=== PATIENT | female | born 1995 | race Caucasian/White ===

== ENCOUNTER 2016-10-08 18:10 | Emergency (ER) | payer OTHER ==
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
[2016-10-08] MEDS ORDERED: NORCO 5/325 PO ONE (23:24)
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
[2016-10-09 02:53] VITALS: BP 120/60
== END 2016-10-09 02:52 | disposition home or self-care (01) ==
LOC: ED 18:10
DX: S40.819A Abrasion of unspecified upper arm, initial encounter (principal); S80.811A Abrasion, right lower leg, initial encounter; M79.1 Myalgia; V43.62XA Car passenger injured in collision with other type car in traffic accident, initial encounter; Y93.89 Activity, other specified; Y99.9 Unspecified external cause status; Y92.410 Unspecified street and highway as the place of occurrence of the external cause
CPT/HCPCS: 71110